=== PATIENT | male | born 1980 | race Caucasian/White ===

== ENCOUNTER → 2021-06-15 | Outpatient (CLI) | payer BC ==
[~2021-06-15] VITALS: Ht 177.8 cm; Wt 154.2 kg
== END ==
LOC: EROP 17:16
DX: U07.1 COVID-19 (principal); Z23 Encounter for immunization
CPT/HCPCS: 96365

== ENCOUNTER 2021-06-26 02:10 | Emergency (ER) | payer BC ==
[2021-06-26 02:38] LABS: HEMOGLOBIN 15.7 gm/dl (14.0-17.5); RED BLOOD COUNT 5.69 M/UL (4.20-5.50)
[2021-06-26 03:19] LABS: BUN/CREATININE RATIO 26 (0-10)
== END 2021-06-26 04:18 | disposition home or self-care (01) ==
LOC: ER1 02:10
PROVIDERS: Family Medicine
DX: R06.00 Dyspnea, unspecified (principal); E66.01 Morbid (severe) obesity due to excess calories; Z86.16 Personal history of COVID-19; Z88.0 Allergy status to penicillin
CPT/HCPCS: 71045; 80048; 82550; 82553; 83605; 83874; 83880; 84484; 85025; 86140; 93005; 99285

== ENCOUNTER 2021-07-01 15:15 | Emergency (ER) | payer BC ==
[2021-07-01 16:37] LABS: HEMOGLOBIN 14.6 gm/dl (14.0-17.5); RED BLOOD COUNT 5.36 M/UL (4.20-5.50); WHITE BLOOD COUNT 8.4 K/UL (4.5-11.0)
[2021-07-01 16:54] LABS: BUN/CREATININE RATIO 21 (0-10)
[2021-07-01] MEDS ORDERED: CEFUROXIME500 MG PO (17:50)
== END 2021-07-01 18:08 | disposition home or self-care (01) ==
LOC: ER1 15:15
PROVIDERS: Preventive Medicine Occupational Medicine
DX: U09.9 Post COVID-19 condition, unspecified (principal)
CPT/HCPCS: 71045; 80048; 85025; 94664; 99283; J7030